=== PATIENT | female | born 1985 | race Caucasian/White ===

== ENCOUNTER 2016-08-19 15:03 | Emergency (ER) | payer OTHER ==
[~2016-08-19] VITALS: Ht 170.2 cm; Wt 50.0 kg
[2016-08-19 15:08] VITALS: BP 139/89; PULSE 101; RESP 20; O2SAT 99
== END 2016-08-19 17:23 | disposition left against medical advice (07) ==
LOC: SED 15:03
DX: M79.89 Other specified soft tissue disorders (principal)